=== PATIENT | female | born 1965 | race African-American/Black ===

== ENCOUNTER 2016-07-13 17:11 | Emergency (ER) | payer OTHER ==
[~2016-07-13] VITALS: Ht 167.6 cm; Wt 131.5 kg
[~2016-07-13 17:11] MED LIST: APAP500 PO; HYDROCODON-ACE1 EAC7 PO; MAXZIDE-25 MG1 EACH PO
[2016-07-13] MEDS ORDERED: TIZANIDINE HCL4 MG PO (19:10)
== END 2016-07-13 19:17 | disposition home or self-care (01) ==
LOC: ER 17:11
DX: S16.1XXA Strain of muscle, fascia and tendon at neck level, initial encounter (principal); J45.909 Unspecified asthma, uncomplicated; Z90.710 Acquired absence of both cervix and uterus; Z88.6 Allergy status to analgesic agent; Z88.1 Allergy status to other antibiotic agents; V89.2XXA Person injured in unspecified motor-vehicle accident, traffic, initial encounter; Y93.I9 Activity, other involving external motion; Y92.488 Other paved roadways as the place of occurrence of the external cause; Y99.8 Other external cause status

== ENCOUNTER → 2017-02-14 | Outpatient (CLI) | payer OTHER ==
[~2017-02-14] MED LIST changes: +TIZANIDINE HCL4 MG PO
--- NOTE | ~2017-02-14 | SLE ---
[facility] [place] [place] [address] POLYSOMNOGRAPHY STUDY Name: ÁNGEL LOUIE Room #: [facility].#: [id number] Admission: 02/14/17 Attend Phys: Carlos Edmond MD Discharge: Date of : 67 Report #: [id number] THIS REPORT FOR: //name// CC: Carlos Gore MD A 51-year-old, height 5 feet 6 inches, weight 274 pounds, usually goes to bed at 9:30, gets out of bed 6:30, sometimes, she feels refreshed, positive snoring, no definite daytime somnolence. Prior study showed an apnea-hypopnea index 21.5 events per recording hour. Low oxygen saturation 74% on home study of 01/01/2017. COMMENTS: PVCs noted. CPAP TITRATION: Titrated at 5, 7, and 9 cm water pressure. The patient was seen for 51 minutes of which 2 minutes was in REM sleep. There was 1 hypopnea. Apnea-hypopnea index 1.2 events per sleep hour, low sat of 92%. At 5 cm water pressure, the patient was seen for 136 minutes, 11 minutes of REM sleep. Apnea-hypopnea index was 0 events per sleep hour, low sat of 92%; however, continued to have snoring. IMPRESSION: 1. Obstructive sleep, apnea/hypopnea, G47.33. 2. Periodic limb movement with arousal index of 0.3 events per sleep hour throughout the night. 3. Premature ventricular contractions noted. 4. Continuous positive airway pressure improves, the patient's apnea-hypopnea index, snoring and desaturation. SUGGESTIONS: 1. In addition to specific therapy, the patient should be cautioned regarding driving or operating dangerous machinery unless fully alert. The patient should be cautioned regarding the use of respiratory depressants. Weight loss and TSH per Dr. Gore. 2. Oral appliance or appropriate surgery may be considered with followup. 3. An auto titrating CPAP between 5 and 10 cm water pressure is initially recommended. During our study, a medium nuance nasal pillow mask was used with heated humidity. 4. If signs and symptoms not improved with therapy, further evaluation is recommended, please do not hesitate to contact me if I may be of further assistance. <ELECTRONICALLY SIGNED> By: Carlos Edmond MD 02/20/178 49 07 Carlos Edmond MD /nt
== END ==
LOC: SLEEPLAB 12:55
DX: G47.33 Obstructive sleep apnea (adult) (pediatric) (principal)

== ENCOUNTER 2017-09-05 17:17 | Emergency (ER) | payer OTHER ==
[~2017-09-05] VITALS: Ht 167.6 cm; Wt 120.2 kg
--- NOTE | ~2017-09-05 | EKG ---
[place] [address] [facility] [address] ELECTROCARDIOGRAM REPORT Name: JACYÁNGEL [facility] [id number] Admission: 09/05/17 Attend Phys: Discharge: 09/05/17 Date of : 67 Report #: [id number] THIS REPORT FOR: //name// [facility] ED Test Date: 2017-09-05 Test Time: 17:49:26 Pat Name: ÁNGEL LOUIE Department: Room: Gender: F Motion Study Analyst: AVIS : 1965 Requested By: Claudia Veras Order Number: [id number] MD: David Haynes Measurements Intervals [place] Rate: 76 P: 41 CA: 215 QRS: 8 QRSD: 93 T: 25 QT: 395 QTc: 445 Interpretive Statements Sinus rhythm Prolonged CA interval Low voltage, precordial leads No previous ECG available for comparison Electronically Signed On 09-06-2017 13:22:44 [employer]ICAN [employer]ISTORY PROFESS[employer] by David Haynes [email or web address] <ELECTRONICALLY SIGNED> By: David Haynes MD 09/06/17 1322 [id number] 1749 David Haynes MD /SELVIN
[2017-09-05 18:49] LABS: ABSOLUTE NEUTROPHILS 2.3 thou/uL (1.4-8.2); BASOPHILS 0.8 % (0.0-2.0); EOSINOPHILS 2.3 % (0.0-3.0); HEMATOCRIT 42.9 % (37.0-47.0); HEMOGLOBIN 14.2 gm/dL (12.0-15.0); LYMPHOCYTES 43.2 % (24.0-44.0); MCH 27.9 pg (26.0-34.0); MCHC 33.1 g/dL (28.0-37.0); MCV 84.4 fL (80.0-100.0); MONOCYTES 8.1 % (1.0-8.0); PLATELET COUNT 270 thou/uL (150-400); POLYS 45.6 % (36.0-66.0); RBC 5.08 mil/uL (4.20-5.00); RDW 14.4 % (10.5-14.5)
[2017-09-05] MEDS ORDERED: PROAIR HFA8.5 GM (18:57)
[2017-09-05] MEDS ORDERED: TOPROL XL25 MG PO (18:57)
[2017-09-05 19:04] LABS: CALCIUM 9.8 mg/dL (8.5-10.1); CREATININE 0.8 mg/dL (0.6-1.0); POTASSIUM 3.6 mmol/L (3.5-5.1)
[2017-09-05 19:26] LABS: URINE BILIRUBIN NEGATIVE (Negative); URINE BLOOD TRACE (Negative); URINE CLARITY CLEAR; URINE COLOR YELLOW; URINE GLUCOSE-RANDOM* NEGATIVE (Negative); URINE KETONES NEGATIVE (Negative); URINE LEUKOCYTES NEGATIVE (Negative); URINE NITRITE NEGATIVE (Negative); URINE PROTEIN (DIPSTICK) NEGATIVE (Negative); URINE SPECIFIC GRAVITY >= 1.030 (1.005-1.035); URINE UROBILINOGEN 0.2 E.U./dl (0.2-1.0)
[2017-09-05] MEDS ORDERED: ANTIVERT25 MG PO (19:43)
[2017-09-05 19:55] VITALS: BP 155/89
== END 2017-09-05 19:57 | disposition home or self-care (01) ==
LOC: ER 17:17
PROVIDERS: Emergency Medicine
DX: R42 Dizziness and giddiness (principal); J45.909 Unspecified asthma, uncomplicated; Z90.710 Acquired absence of both cervix and uterus; Z88.1 Allergy status to other antibiotic agents; Z88.6 Allergy status to analgesic agent

== ENCOUNTER 2019-03-18 19:03 | Emergency (ER) | payer OTHER ==
[~2019-03-18] VITALS: Ht 167.6 cm; Wt 122.5 kg
[~2019-03-18 19:03] MED LIST changes: +ANTIVERT25 MG PO; +PROAIR HFA8.5 GM; +TOPROL XL25 MG PO
[2019-03-18 20:00] LABS: ABSOLUTE NEUTROPHILS 2.4 thou/uL (1.4-8.2); BASOPHILS 1.7 % (0.0-2.0); EOSINOPHILS 4.7 % (0.0-3.0); HEMATOCRIT 41.8 % (37.0-47.0); HEMOGLOBIN 13.7 gm/dL (12.0-15.0); MCH 28.7 pg (26.0-34.0); MCHC 32.7 g/dL (28.0-37.0); MCV 87.9 fL (80.0-100.0); MONOCYTES 8.8 % (1.0-8.0); PLATELET COUNT 246 thou/uL (150-400); POLYS 47.8 % (36.0-66.0); RBC 4.76 mil/uL (4.20-5.00); RDW 13.8 % (10.5-14.5)
[2019-03-18 20:08] LABS: ANION GAP 7 mmol/L (7-16); BUN 8 mg/dL (7-18); CALCIUM 9.3 mg/dL (8.5-10.1); CHLORIDE 103 mmol/L (98-107); CO2 31 mmol/L (21-32); CREATININE 0.8 mg/dL (0.6-1.0); GLUCOSE 158 mg/dL (74-106); POTASSIUM 4.2 mmol/L (3.5-5.1); SODIUM 141 mmol/L (136-145)
[2019-03-18 20:18] LABS: ALBUMIN 3.4 g/dL (3.4-5.0); MAGNESIUM 1.7 mg/dL (1.8-2.4); SGOT 27 U/L (15-37); SGPT 51 U/L (30-65); TOTAL BILIRUBIN 0.2 mg/dL (<0.1-1.0); TOTAL PROTEIN 7.8 g/dL (6.4-8.2); TROPONIN-I <0.06 ng/mL (<0.06)
[2019-03-18] MEDS ORDERED: PREDNISONE 20 M20 MG PO (20:20)
[2019-03-18] MEDS ORDERED: ALBUTEROL2.5 MG/31 INH (20:20)
[2019-03-18] MEDS ORDERED: VENTOLIN HFA 1818 GM INH (20:20)
[2019-03-18 21:07] VITALS: BP 139/71
--- NOTE | 2019-03-19 07:51 | EKG ---
[place] [address] [facility] [place] [address] ELECTROCARDIOGRAM REPORT Name: ZAKIYA LOUIEPAULINE Guerrero [facility] [id number] ������������������ Admission: 03/18/19 ������������������ Attend Phys: Discharge: 03/18/19 ������������������ Date of : 67 Report #: [id number] ����������������������������������������������������������������� [id number] THIS REPORT FOR: //name// [facility] ED Test Date: 2019-03-18 Test Time: 19:15:43 Pat Name: ÁNGEL LOUIE Department: Room: Gender: F Tire Bagger: : 1965 Requested By: Jelani Khan Order Number: [id number] MD: Levi Webster Measurements Intervals [place] Rate: 99 P: 47 ID: [id number] QRS: 20 QRSD: 91 T: 48 QT: 330 QTc: 424 Interpretive Statements Sinus rhythm Normal tracing Compared to ECG 09/05/2017 17:49:26 First degree AV block no longer present Electronically Signed On 03-19-2019 7:51:25 CDT by Levi Webster [email or web address] ��������������������������������������������� <ELECTRONICALLY SIGNED> ���������������������������������������� By: Levi Webster MD, [facility] ��������������������������������������������� 03/19/19 0751 1915 14 Levi Webster MD, FACC /EPI
== END 2019-03-18 21:08 | disposition home or self-care (01) ==
LOC: ER 19:03
PROVIDERS: Emergency Medicine
DX: J45.901 Unspecified asthma with (acute) exacerbation (principal); E11.9 Type 2 diabetes mellitus without complications; G47.30 Sleep apnea, unspecified; Z90.710 Acquired absence of both cervix and uterus; Z98.890 Other specified postprocedural states; Z88.1 Allergy status to other antibiotic agents; Z88.6 Allergy status to analgesic agent

== ENCOUNTER 2019-05-01 11:05 | Inpatient (IN) | payer OTHER ==
[~2019-05-01] VITALS: Ht 170.2 cm; Wt 122.5 kg
[~2019-05-01 11:05] MED LIST changes: +ALBUTEROL2.5 MG/31 INH; +PREDNISONE 20 M20 MG PO; +VENTOLIN HFA 1818 GM INH
[2019-05-01 11:06] VITALS: BP 167/91
[2019-05-01] MEDS ORDERED: METFORMIN HCL500 M3 PO (11:16)
[2019-05-01 12:03] LABS: ABSOLUTE NEUTROPHILS 2.9 thou/uL (1.4-8.2); BASOPHILS 1.1 % (0.0-2.0); EOSINOPHILS 6.7 % (0.0-3.0); HEMATOCRIT 43.1 % (37.0-47.0); HEMOGLOBIN 14.6 gm/dL (12.0-15.0); LYMPHOCYTES 27.6 % (24.0-44.0); MCH 29.6 pg (26.0-34.0); MCHC 33.8 g/dL (28.0-37.0); MCV 87.6 fL (80.0-100.0); MONOCYTES 8.4 % (1.0-8.0); PLATELET COUNT 231 thou/uL (150-400); POLYS 56.2 % (36.0-66.0); RBC 4.92 mil/uL (4.20-5.00); RDW 13.7 % (10.5-14.5); WBC 5.1 thou/uL (4.0-11.0)
[2019-05-01 12:12] LABS: CALCIUM 9.4 mg/dL (8.5-10.1); CREATININE 0.8 mg/dL (0.6-1.0); POTASSIUM 4.2 mmol/L (3.5-5.1)
[2019-05-01 12:48] LABS: BE(vivo) 0.4 mmol/L (-2 to +3); HCO3 25.6 mmol/L (22.0-26.0); PCO2 43.1 mmHg (35.0-45.0); PO2 76.8 mmHg (80.0-100.0); pH 7.391 (7.360-7.450); sO2 95.2 % (92.0-98.0)
[2019-05-01 14:23] VITALS: BP 136/71
[2019-05-01 16:52] VITALS: BP 161/71
[2019-05-01 17:10] VITALS: BP 152/82
--- NOTE | 2019-05-01 17:32 | NUR ---
PT ORIENTED TO ROOM AND UNIT, BED LOW AND LOCKED, SIDE RAILS UPX3, CALL LIGHT INRECH. TELE APPLIED AND ALL DOCUMENTS SIGNED. WILL CONTINUE TO ASSESS.
--- NOTE | 2019-05-01 17:39 | NUR ---
PT REFUSED SCDS.
[2019-05-01 19:30] VITALS: BP 152/89
[2019-05-02] VITALS: BP 144/89
[2019-05-02 03:45] VITALS: BP 153/81
--- NOTE | 2019-05-02 04:40 | NUR ---
PT MAKING PROGRESS TOWARDS GOALS. HAS DENIED ANY SOA OVERNIGHT. O2 AT 1L PER NC PER RT AND PT HAS SLEEP APNEA PER H&P. UP AD KOURTNEY, DENIED ANY SOA WITH ACTIVITY.
[2019-05-02 04:44] LABS: ABSOLUTE NEUTROPHILS 7.4 thou/uL (1.4-8.2); BASOPHILS 0.2 % (0.0-2.0); EOSINOPHILS 0.1 % (0.0-3.0); HEMATOCRIT 42.6 % (37.0-47.0); LYMPHOCYTES 11.9 % (24.0-44.0); MCH 29.1 pg (26.0-34.0); MCV 88.4 fL (80.0-100.0); MONOCYTES 1.1 % (1.0-8.0); PLATELET COUNT 259 thou/uL (150-400); POLYS 86.7 % (36.0-66.0); RBC 4.82 mil/uL (4.20-5.00); RDW 13.7 % (10.5-14.5); WBC 8.6 thou/uL (4.0-11.0)
[2019-05-02 04:57] LABS: CALCIUM 9.3 mg/dL (8.5-10.1); CREATININE 0.9 mg/dL (0.6-1.0); POTASSIUM 4.3 mmol/L (3.5-5.1)
[2019-05-02 07:17] VITALS: BP 155/87
--- NOTE | 2019-05-02 07:18 | H ---
[facility] [place] [address] [place] [address] HISTORY AND PHYSICAL Name: ÁNGEL LOUIE Room #: 349-I ADM IN M.R.#: [id number] Admission: 05/01/19 Attend Phys: Carrington Gore MD, FAAF Discharge: Date of : 67 Report #: [id number] THIS REPORT FOR: //name// CC: Carrington Gore DATE OF SERVICE: 05/01/2019 CHIEF COMPLAINT: Asthma flare. HISTORY OF PRESENT ILLNESS: The patient is a 54-year-old black female well known to me. She has asthma, type 2 diabetes and hypertension. She has had asthma flares over the last few weeks moderated by prednisone. Her last prednisone burst ended about 8 days ago and 5 days ago, she started having wheezing and chest tightness. Her inhalers and her medications help only transiently. She was seen in the Emergency Department with asthma flare, had an elevated lactate, possibly associated with volume depletion, did feel better after breathing treatments and is admitted and started on steroids. PAST MEDICAL HISTORY: Asthma, hysterectomy, right ankle surgery, sleep apnea, type 2 diabetes and hypertension. MEDICATIONS: Albuterol, triamterene/hydrochlorothiazide 37.5/25 one p.o. q.a.m., metoprolol succinate 25 mg 1 p.o. daily, metformin 500 mg 1 p.o. b.i.d. ALLERGIES: PENICILLIN and IBUPROFEN. SOCIAL HISTORY: , nonsmoker, nondrinker. Denies recreational drug use, is an senior market research analyst for the [employer]. Lives at home with her family. FAMILY HISTORY: Positive for heart attack in her grandmother and also positive for asthma. REVIEW OF SYSTEMS: GENERAL: No fever, chills, nausea, vomiting, diarrhea. EYES: No visual changes. ENT: No problems with hearing, swallow, taste or smell. CARDIOVASCULAR: She has had some pleuritic pain, but no other chest pain. RESPIRATORY: She has had shortness of breath with wheezing, chest tightness, particularly exertional dyspnea and after speaking for very long. GASTROINTESTINAL: No abdominal pain. GENITOURINARY: No problems urinating. MUSCULOSKELETAL: No muscle or joint pain. NEUROLOGIC: No paresis, paralysis or paresthesias. PSYCHIATRIC: No disturbing thoughts. DERMATOLOGIC: No disturbing lesions or rash. Remainder of system review is negative. [address] [address] HISTORY AND PHYSICAL Name: ÁNGEL LOUIE Room #: 349-I [facility].#: [id number] Admission: 05/01/19 Attend Phys: Carrington Gore MD, FAAF Discharge: Date of : 67 Report #: [id number] OBJECTIVE: VITAL SIGNS: Temperature 36.9, pulse 118, respirations 24, blood pressure 167/91, pulse ox on room air is 96%. She weighs 270 pounds or 122.47 kilograms. At the time of my exam on the afternoon of the day of admission, she is in no acute distress. HEENT: Pupils equal, round, reactive to light and accommodation. Extraocular muscles intact. Pharynx unremarkable. NECK: Supple. COR: S1, S2. CHEST: Clear with diminished air movement, particularly in the bases, but no active wheezing. ABDOMEN: Soft, nontender. EXTREMITIES: No cyanosis, clubbing or edema. NEUROLOGIC: Intact without focal deficit. LABORATORY DATA: EKG revealed a sinus tachycardia, rate 118 with no ischemic changes. Chest x-ray showed no acute pulmonary abnormality. LABORATORY EVALUATION: CBC: White count 5.1, hemoglobin 14.6, hematocrit 43.1, platelets 231,000. She has 8.4% monocytes, 6.7% eosinophils both subfractions of her white cell population is elevated. Serum chemistry: Sodium 138, potassium 4.2, chloride 100, CO2 29, anion gap 9, BUN 10, creatinine 0.8, glucose 254. Lactate 3.1, calcium 9.4. ASSESSMENT: Asthma flare, elevated lactate level, hypertension, type 2 diabetes. PLAN: Admit to hospital, pulmonary toilet, steroids. Add Singulair. Continue home medications. Request pulmonary consult. <ELECTRONICALLY SIGNED> By: Carrington Gore MD, FAAFP, FACEP 05/02/19 0718 2359 0011 Carrington Gore MD, FAAFP, FACEP /nt
--- NOTE | 2019-05-02 11:49 | EKG ---
[place] [address] [facility] [place] [address] ELECTROCARDIOGRAM REPORT Name: ALBAN LOUIEN Yolanda Room #: 349-I ADM IN M.R.#: [id number] Admission: 05/01/19 Attend Phys: Carrington Gore MD, FAAF Discharge: Date of : 67 Report #: [id number] THIS REPORT FOR: //name// [facility] ED Test Date: 2019-05-01 Test Time: 16:38:47 Pat Name: ÁNGEL LOUIE Department: Room: 349 I Gender: F Chief Specialist Leed: ESHEETS : 1965 Requested By: Fernando Peña Order Number: [id number] MD: Levi Webster Measurements Intervals [place] Rate: 118 P: 55 [place]: 161 QRS: 30 QRSD: 90 T: 58 QT: 324 QTc: 455 Interpretive Statements Sinus tachycardia Baseline wander in lead(s) V1,V2 Compared to ECG 03/18/2019 19:15:43 Heart rate has increased Electronically Signed On 05-02-2019 11:48:56 CDT by Levi Webster [email or web address] <ELECTRONICALLY SIGNED> By: Levi Webster MD, [facility] 05/02/19 1148 [id number] 163 Levi Webster MD, [facility] /EPI
[2019-05-02 16:31] VITALS: BP 140/83
--- NOTE | 2019-05-02 17:09 | NUR ---
PT MAY BE READY TO DISCHARGE TOMORROW PER DR PEREIRA...NEEDS BETTER CONTROL OF BLOOD SUGARS...WILL RESTART CPAP TONIGHT AND PLANS TO RESTART USING CPAP AT HOME UPON DISCHARGE...
[2019-05-02 18:53] VITALS: BP 136/82
--- NOTE | 2019-05-03 03:55 | NUR ---
PAITENT IS ALERT AND ORIENTED. PATIENT IS UP AD KOURTNEY. PATIENTS LUNGS ARE CLEAR NO WHEEZING. PATIENT IS ON ROOM AIR. PATIENT IS NSR ON TELE. PATIENT IS CPAP HS. PATIENT IS PENDING DISCHARGE TODAY IF BLOOD GLUCOSE IS CONTROLLED. PATIENT DENIES PAIN. PATIENT IS RESTING COMFORTALBY IN BED. WCM. PATIENT IS PROGRESSING TO GOALS.
[2019-05-03 03:58] VITALS: BP 133/78
[2019-05-03 05:39] LABS: BASOPHILS 0.1 % (0.0-2.0); HEMATOCRIT 41.1 % (37.0-47.0); HEMOGLOBIN 13.8 gm/dL (12.0-15.0); LYMPHOCYTES 6.5 % (24.0-44.0); MCH 29.5 pg (26.0-34.0); MCHC 33.4 g/dL (28.0-37.0); MCV 88.2 fL (80.0-100.0); MONOCYTES 3.4 % (1.0-8.0); PLATELET COUNT 260 thou/uL (150-400); RBC 4.67 mil/uL (4.20-5.00); WBC 12.3 thou/uL (4.0-11.0)
[2019-05-03 07:26] VITALS: BP 133/71
--- NOTE | 2019-05-03 13:58 | NUR ---
ASSESSMENT: CM REVIEWED CHART AND MET WITH PATIENT AT THE BEDSIDE. PT WAS ADMITTED WITH ASTHMA EXACERBATION. PT REPORTS LIVING IN AN APT WITH HER AND DAUGHTER. PT IS FULLY INDEPENDENT WITH ADLS AND AMBULATION. PT DENIHES HAVING HH IN THE PAST OR BEING TO A SNF. PT REPORTS HAVING A CPAP MACHINE AT HOME WELL A NEBULIZER. PT REPORTS SHE DOES NOT ANTICIPATE HAVING ANY NEEDS AT DISCHARGE. CM WILL CONTINUE TO FOLLOW TO ASSIST NEEDED.
[2019-05-03 15:56] VITALS: BP 144/53
[2019-05-03 16:09] VITALS: BP 132/75
--- NOTE | 2019-05-03 16:12 | NUR ---
Assumed care approx. 0700 this AM. Patient hopeful for discharge soon, but understands that we need to taper off steroids and get blood sugars back in control. Sliding scale insulin advanced today to high SS for two consecutive blood sugars >300. Dr. Gore rounded on patient this afternoon, and approved for patient to be on high sliding scale until sugars are under control. Patient tolerating room air. Patient noted to be sinus tachycardia on the monitor most of the shift. No other acute events or changes at this time. Will continue to monitor. Patient progressing toward goals.
[2019-05-03 19:20] VITALS: BP 139/80
[2019-05-04 03:45] VITALS: BP 150/87
--- NOTE | 2019-05-04 05:57 | NUR ---
HUMAN RESOURCES TRAINEE reported high BG in glucometer. She repeated the test after pt. washed hands and got a reading of 469. Dr. Gore notified , no new order at this time but to continue to monitor since pt. already advanced to high dose sliding scale earlier. Pt. requested med for cold sore on right upper lip. Dr. Gore notified and med ordered. Pt. stated she slept well during the night with CPAP on. No respiratory distress. Progressing towards care plan goals.
[2019-05-04 07:54] VITALS: BP 158/89
--- NOTE | 2019-05-04 13:43 | NUR ---
Assess due to high BMI 42.3=extreme class III obesity. Admit with copd exacerbation. Hx diabetes and now on steroids with BG 300-400s. Stable wt past year. Eating 100% of carb control diet. Hopefully will transition off steroids soon. Pt not in room x 2 attempts to visit today. Available for any diet education needs upon pt request. Low nutrition risk
--- NOTE | 2019-05-04 15:21 | NUR ---
Assumed care approx. 0700 this AM. Patient hopeful for discharge today, but Dr. Gore has yet to see patient. Blood sugars remain in the 300's today, but okay per Dr. Gore as the plan is to start tapering off of IV steroids to oral soon. No acute events, no distress, no new changes noted. Acyclovir that was ordered overnight is still being administered for a complaint of a cold sore. Patient progressing toward plan of care goals.
[2019-05-04 19:05] VITALS: BP 123/63
[2019-05-05] VITALS (7 sets, daily range): BP systolic 117–139; BP diastolic 63–86
--- NOTE | 2019-05-05 04:14 | NUR ---
PT MAKING PROGRESS TOWARDS GOALS. DENIES ANY SOA WHILE AT REST. DID STATE THAT SHE STILL FEELS A LITTLE SOA WITH ACTIVITY. ON ROOM AIR, WEARING CPAP AT BED TIME.
--- NOTE | 2019-05-05 12:39 | NUR ---
PT HOPES TO GO HOME TODAY IF DR YEN FEELS SHE IS READY...ENCOURAGED AMBULATION...REPORTS LESS SOA WHEN OUT OF BED...
[2019-05-05] MEDS ORDERED: SINGULAIR 10 MG10 M1 PO (16:56)
[2019-05-05] MEDS ORDERED: DIFLUCAN150 M1 PO (16:58)
[2019-05-05] MEDS ORDERED: RAYOS5 MG PO (17:14)
== END 2019-05-05 18:23 | disposition home or self-care (01) | DRG 202 ==
LOC: ER 11:05 → 3W 15:08 → EROBS 15:08 → 3W 17:05
PROVIDERS: Emergency Medicine; ADMIT Family Medicine
PROC: 5A09357 Assistance with Respiratory Ventilation, Less than 24 Consecutive Hours, Continuous Positive Airway Pressure (ICD-10-PCS; principal; 2019-05-04)
DX: J45.901 Unspecified asthma with (acute) exacerbation (principal); Z68.41 Body mass index [BMI] 40.0-44.9, adult; I10 Essential (primary) hypertension; E11.9 Type 2 diabetes mellitus without complications; E66.01 Morbid (severe) obesity due to excess calories; G47.33 Obstructive sleep apnea (adult) (pediatric); E11.65 Type 2 diabetes mellitus with hyperglycemia; T38.0X5A Adverse effect of glucocorticoids and synthetic analogues, initial encounter; D72.1 Eosinophilia; Z90.710 Acquired absence of both cervix and uterus; Z79.899 Other long term (current) drug therapy; Z79.84 Long term (current) use of oral hypoglycemic drugs; Z88.8 Allergy status to other drugs, medicaments and biological substances; Z88.0 Allergy status to penicillin; Z82.49 Family history of ischemic heart disease and other diseases of the circulatory system; Z82.5 Family history of asthma and other chronic lower respiratory diseases; Y92.89 Other specified places as the place of occurrence of the external cause; Z71.3 Dietary counseling and surveillance
CPT/HCPCS: 10879